=== PATIENT | male | born 1950 | race Caucasian/White ===

== ENCOUNTER → 2016-08-29 | Outpatient (CLI) | payer OTHER ==
[2016-08-29 15:08] LABS: BLOOD UREA NITROGEN 12 mg/dl (7-18); CALCIUM 9.1 mg/dl (8.5-10.1); CARBON DIOXIDE 44 mmol/L (21-32); CHLORIDE 88 mmol/L (98-107); GLUCOSE 113 mg/dl (70-99); POTASSIUM 3.6 mmol/L (3.5-5.1); SODIUM 133 mmol/L (136-145)
== END | disposition home or self-care (01) ==
LOC: C.LABMFLN 08:52
PROVIDERS: ATTEND Family Medicine
DX: R60.0 Localized edema (principal); E55.9 Vitamin D deficiency, unspecified

== ENCOUNTER → 2017-03-27 | Outpatient (CLI) | payer OTHER ==
[2017-03-27 18:18] LABS: HEMATOCRIT 44.6 % (42-52); MEAN CELL VOLUME 90.3 fL (80-100); MEAN CORPUSCULAR HEMOGLOBIN 26.1 pg (25-34); MEAN CORPUSCULAR HGB CONC 28.9 g/dl (32-36); MEAN PLATELET VOLUME 10.6 fL (7.4-10.4); PLATELET COUNT 164 K/uL (130-400); RED BLOOD COUNT 4.94 M/uL (4.7-6.1); WHITE BLOOD COUNT 8.88 K/uL (4.8-10.8)
[2017-03-27 18:19] LABS: ANISOCYTOSIS PRESENT; BASO % 0.1 %; BASO ABS # 0.01 K/uL (0-0.2); COMPLETE YES; EOS % 0.3 %; IG% 0.1 %; LYMPH % 11.3 %; MONO % 8.3 %; NEUT % 79.9 %; STOMATOCYTE 1+
[2017-03-27 18:35] LABS: TOTAL IRON BINDING CAPACITY 418 mcg/dl (250-450)
--- NOTE | 2017-04-02 13:21 | CODING QUERY MEDICAL NECESSITY ---
CQSUPPORTING DIAGNOSIS NEEDED A supporting diagnosis is required for the test/procedure performed on this patient in order for us to be reimbursed by the patient's insurance. Please provide a supporting diagnosis for the following test/procedure listed below next to the test name along with your signature. *If there is no additional diagnosis for this patient that would support the following test/procedure please document that below next to the test/procedure. Test(s)/Procedure(s) that require a supporting diagnosis: DOS 03/27/17 FOLIC ACID TEST Provider Signature: Date: Thank you Frieda Briceño Health Information Management Once completed, please kindly fax back to [phone] For questions please call [phone]
== END | disposition home or self-care (01) ==
LOC: C.LABMFLN 14:07
PROVIDERS: ATTEND Family Medicine
DX: R09.02 Hypoxemia (principal); R91.8 Other nonspecific abnormal finding of lung field; E55.9 Vitamin D deficiency, unspecified; D64.9 Anemia, unspecified

== ENCOUNTER → 2017-03-30 | Outpatient (CLI) | payer OTHER ==
--- NOTE | 2017-03-30 13:46 | DIAGNOSTIC IMAGING REPORT ---
(CHEST) THORAX WITHOUT CT DOSE: 231.34 mGycm HISTORY: R91.1 Lung nodule seen on imaging study. do in February [id number] TECHNIQUE: Multiaxial CT images of the chest were performed without contrast. A dose lowering technique was utilized adhering to the principles of ALARA. COMPARISON: Chest CT 02/25/2016. FINDINGS: Small amount of mucoid material within the bilateral mainstem and lower lobe bronchi. This is similar to the prior study. No pleural effusions. No pneumothorax. Moderate emphysema is again noted. Mild respiratory motion artifact. Small patchy groundglass and consolidative airspace opacity seen within the lung bases most pronounced within the lower lobes. This has progressed. Dominant focus of consolidation within the right lung base measures 3.5 cm. A 1 cm triangular-shaped nodule within the right lower lobe on image 259. This remains stable in size but demonstrates a more solid appearance. A few peripheral tree-in-bud nodular opacities within the lateral aspect of the right upper lobe. This is similar to the prior study. No fractures within the visualized osseous structures. The unenhanced liver and spleen are unremarkable. The heart is normal in size. Normal caliber thoracic aorta. No mediastinal or hilar lymphadenopathy. IMPRESSION: 1. Progressive groundglass and consolidative patchy airspace opacities within the lung bases most pronounced within the lower lobes. This likely represents a pneumonia possibly secondary to aspiration. 2. A 1 cm nodule within the right lower lobe is stable in size. However, the demonstrates a more solid appearance. An additional [address] follow-up is recommended. 3. Emphysema. 4. Small amount of mucoid material within the bilateral bronchi. Electronically signed by: Ishmael Smith M.D. 03/30/2017 1:45 PM Dictated Date/Time: 03/30/2017 1:31 PM
== END | disposition home or self-care (01) ==
LOC: C.CTS 13:01
PROVIDERS: ATTEND Internal Medicine Pulmonary Disease
DX: R91.1 Solitary pulmonary nodule (principal); R91.8 Other nonspecific abnormal finding of lung field; J43.9 Emphysema, unspecified